=== PATIENT | female | born 1965 | race African-American/Black ===

== ENCOUNTER 2018-07-25 15:57 | Emergency (ER) | payer BC ==
[~2018-07-25] VITALS: Ht 162.6 cm; Wt 81.2 kg
[~2018-07-25 15:57] MED LIST: ACETAMINOPHEN325 M1 PO; ADVAIR 250-501 EACH IH; ALBUTEROL2.5 MG/0.1; ALBUTEROL2.5 MG/31 INH; AZITHROMYCIN 2250 MG PO; CIPROFLOXACIN500 M1 PO; CYCLOBENZAPRINE10 MG PO; FISHOIL; FLAGYL500 MG PO; GLUCOPHAGE XR500 MG PO; GLUCOPHAGE1000 MG PO; GLUMETZA500; HYDROCHLOROTHIA25 M2 PO; HYDROCODONE-AC120 ML PO; IBUPROFEN 600600 M1 PO; LANTUS SQ; LISINOPRIL5 MG PO; LOSARTAN POTAS100 MG PO; MEDROL DOSPAK21 TAB PO; METFORMIN HCL500 MG PO; MULTIVITAMINS PO; NORCO 5-325 TA1 EACH PO; PANTOPRAZOLE SO40 M1 PO; PHENERGAN 25 MG25 M1 PO; PREDNISONE 20 M20 M1 PO; PREDNISONE50 MG PO; PROAIR HFA8.5 GM IH; PROTONIX40 M1 PO; REGLAN 10 MG TA10 MG PO; SINGULAIR PO; TESSALON PERLE100 MG PO; TESSALON200 MG PO; TRAMADOL 50 MG50 MG PO; TUSSIONEX PENN473 ML PO; VICODIN 5-5001 EACH PO; ZESTRIL40 MG PO; ZOFRAN ODT4 MG PO; ZOFRAN4 MG PO; ZOFRAN8 MG PO; ZPAK PO
[2018-07-25] MEDS ORDERED: KEFLEX500 M1 PO (16:57)
[2018-07-25 17:05] VITALS: BP 112/77
== END 2018-07-25 17:59 | disposition home or self-care (01) ==
LOC: ER 15:57
DX: S80.861A Insect bite (nonvenomous), right lower leg, initial encounter (principal); S60.862A Insect bite (nonvenomous) of left wrist, initial encounter; L03.115 Cellulitis of right lower limb; L03.114 Cellulitis of left upper limb; E11.9 Type 2 diabetes mellitus without complications; I10 Essential (primary) hypertension; K21.9 Gastro-esophageal reflux disease without esophagitis; Z90.710 Acquired absence of both cervix and uterus; Z88.5 Allergy status to narcotic agent; Y93.89 Activity, other specified; W57.XXXA Bitten or stung by nonvenomous insect and other nonvenomous arthropods, initial encounter; Y92.89 Other specified places as the place of occurrence of the external cause; Y99.8 Other external cause status